=== PATIENT | female | born 1960 | race American Indian/Alaskan Native ===

== ENCOUNTER 2019-04-11 10:25 | Emergency (ER) | payer SELFPAY ==
[2019-04-11 11:07] VITALS: BP 143/81
[2019-04-11] MEDS ORDERED: TORADOL IM ONE (11:11)
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
== END 2019-04-11 12:01 | disposition home or self-care (01) ==
LOC: ED 10:25
DX: G89.29 Other chronic pain (principal); M54.30 Sciatica, unspecified side; M54.16 Radiculopathy, lumbar region
CPT/HCPCS: 96372; 99281; J1885

== ENCOUNTER 2019-04-24 11:51 | Emergency (ER) | payer SELFPAY ==
[2019-04-24 12:10] VITALS: BP 129/83
[2019-04-24] MEDS ORDERED: FLEXERIL PO ONE (13:25)
[2019-04-24] MEDS ORDERED: IBUPROFEN PO ONE (13:25)
--- NOTE | 2019-04-24 13:29 | Emergency Department Report ---
ED Back Pain/Injury HPI - General Chief Complaint: Back Pain/Injury Stated Complaint: BACK/LEG SPASMS Time Seen by Provider: 04/24/19 13:10 Source: patient Limitations: No Limitations - History of Present Illness Initial Comments: Patient is a 51-year-old female who presents to the emergency room with complaints of chronic low back pain that began 2 years ago. She states she has seen a chiropractor in the past. Patient states she just recently moved here and does not have a primary care doctor. She denies any new fall, injury, trauma. she does not report any numbness, weakness, bowel or bladder incontinence, urinary symptoms, fever. she has a past medical history of HTN, asthma. Patient was evaluated in the emergency room on 619 and given a prescription for Flexeril and ibuprofen. Patient was given a primary care doctor to follow up with and she has not. - Related Data Previous Rx's Medication Instructions Recorded Last Taken Type Cyclobenzaprine [Flexeril] 10 mg PO TID PRN #20 tablet 04/11/19 Unknown Rx Ibuprofen [Motrin 800 MG tab] 800 mg PO Q8HR PRN #15 tablet 04/11/19 Unknown Rx Allergies Allergy/AdvReac Type Severity Reaction Status Date / Time No Known Allergies Allergy Unverified 04/11/19 11:43 ED Review of Systems ROS: Stated complaint: BACK/LEG SPASMS Other details as noted in HPI Comment: All other systems reviewed and negative ED Past Medical Hx - Past Medical History Previous Medical History?: Yes Hx Hypertension: Yes Hx Asthma: Yes - Surgical History Past Surgical History?: Yes Additional Surgical History: C-Sect x 2, tonsilectomy, hysterectomy - Social History Smoking Status: Current Every Day Smoker Substance Use Type: None - Medications Home Medications: Home Medications Medication Instructions Recorded Confirmed Last Taken Type Cyclobenzaprine [Flexeril] 10 mg PO TID PRN #20 tablet 04/11/19 Unknown Rx Ibuprofen [Motrin 800 MG tab] 800 mg PO Q8HR PRN #15 tablet 04/11/19 Unknown Rx ED Physical Exam - General Limitations: No Limitations General appearance: alert, in no apparent distress - Head Head exam: Present: atraumatic, normocephalic - Eye Eye exam: Present: normal appearance, PERRL - ENT ENT exam: Present: mucous membranes moist - Neck Neck exam: Present: normal inspection, full ROM. Absent: tenderness - Respiratory Respiratory exam: Present: normal lung sounds bilaterally. Absent: respiratory distress, wheezes, rales, rhonchi, stridor, chest wall tenderness, accessory muscle use, decreased breath sounds, prolonged expiratory - Cardiovascular Cardiovascular Exam: Present: regular rate, normal rhythm, normal heart sounds. Absent: systolic murmur, diastolic murmur, rubs, gallop - Back Exam Back exam: Present: normal inspection, full ROM. Absent: paraspinal tenderness, vertebral tenderness - Neurological Exam Neurological exam: Present: alert, oriented X3, CN II-XII intact, normal gait. Absent: motor sensory deficit - Psychiatric Psychiatric exam: Present: normal affect, normal mood - Skin Skin exam: Present: warm, dry, intact ED Course Vital Signs 04/24/19 12:09 Temperature 98.2 F Pulse Rate 91 H Respiratory 16 Rate Blood Pressure 129/83 O2 Sat by Pulse 96 Oximetry ED Medical Decision Making - Medical Decision Making Patient is a 51-year-old female who presents to the emergency room with complaints of chronic low back pain that began 2 years ago. She states she has seen a chiropractor in the past. Patient states she just recently moved here and does not have a primary care doctor. She denies any new fall, injury, trauma. she does not report any numbness, weakness, bowel or bladder incontinence, urinary symptoms, fever. she has a past medical history of HTN, asthma. Patient was evaluated in the emergency room on 619 and given a prescription for Flexeril and ibuprofen. Patient was given a primary care doctor to follow up with and she has not. no spinal TTP, no paraspinal TTP, FROM of the spine, no focal neuro deficit. pt given ibuprofen and flexeril while in the ED. discussed with pt that she would need to follow up with a primary care doctor for further management of her chronic back pain and that this condition is not typically managed from an emergency room. Please follow up with a primary care doctor in the next 2-3 days. Given list of community resources. May use ice, rest, heat, epsom salt bath. Return to the emergency room for any new or worsening symptoms. - Differential Diagnosis DDD, DJD, sciatica, bulging disc Critical care attestation.: If time is entered above; I have spent that time in minutes in the direct care of this critically ill patient, excluding procedure time. ED Disposition Clinical Impression: Chronic back pain Qualifiers: Back pain location: low back pain Back pain laterality: bilateral Sciatica presence: without sciatica Qualified Code(s): M54.5 - Low back pain Disposition: TO HOME OR SELFCARE Is pt being admited?: No Does the pt Need Aspirin: No Condition: Stable Instructions: Chronic Back Pain (ED) Additional Instructions: Please follow up with a primary care doctor in the next 2-3 days. Given list of community resources. May use ice, rest, heat, epsom salt bath. Return to the emergency room for any new or worsening symptoms. Referrals: ROX BLANK MD [Primary Care Provider] - 2-3 Days [facility] [Outside] - 2-3 Days [facility] [Outside] - 2-3 Days Time of Disposition: 13:28 Print Language: CZECH
== END 2019-04-24 13:37 | disposition home or self-care (01) ==
LOC: ED 11:51
DX: G89.29 Other chronic pain (principal); M54.5 Low back pain; I10 Essential (primary) hypertension; F17.200 Nicotine dependence, unspecified, uncomplicated; J45.909 Unspecified asthma, uncomplicated; Z90.89 Acquired absence of other organs; Z90.710 Acquired absence of both cervix and uterus

== ENCOUNTER 2019-06-25 12:12 | Emergency (ER) | payer OTHER ==
--- NOTE | 2019-06-25 12:22 | Emergency Department Report ---
Chief Complaint: Recheck/Abnormal Lab/Rx Stated Complaint: HBP Time Seen by Provider: 06/25/19 12:17 - HPI History of Present Illness: 59 y o female with a PMH of HTN controlled with medication presents to ED stating that she is out of her medication x 1 week She states she is new to the area and has not found a pcp yet She denies fever,cp,sob,headache or any other symptoms She also states hx of muscle spasms of lower back and was taking flexeril. - ROS Review of Systems: As noted in HPI - Exam Physical Exam: GEN: AAO x 3, she is not in any distress CHEST:RRR , no mummurs, nontender to palpation MSE screening note: Focused history and physical exam performed. Due to findings the following was ordered: ED Medical Decision Making - Medical Decision Making 59 y o female with hx of HTN presents to Ed wanting medication refill She is in no acute or respiratory distress Vital signs stable, no distess DIscussed to follow up with her pCP ED Disposition for MSE Clinical Impression: Medication refill Disposition: - TO HOME OR SELFCARE Is pt being admited?: No Does the pt Need Aspirin: No Condition: Stable Instructions: Chronic Hypertension (ED) Prescriptions: Cyclobenzaprine [Flexeril 10 MG TAB] 10 mg PO QHS PRN #15 tablet PRN Reason: Muscle Spasm Losartan/Hydrochlorothiazide [Hyzaar 100-12.5 Tablet] 1 each PO DAILY #40 tablet [facility] - 3-5 Days [facility] [Outside] - 3-5 Days [facility] [Outside] - 3-5 Days CAROLINA LAO MD [Staff Physician] - 3-5 Days Forms: Work/School Release Form(ED) Time of Disposition: 12:28
[2019-06-25 12:26] VITALS: BP 164/96
== END 2019-06-25 12:29 | disposition home or self-care (01) ==
LOC: ED 12:12
DX: I10 Essential (primary) hypertension (principal); M62.830 Muscle spasm of back; Z76.0 Encounter for issue of repeat prescription
CPT/HCPCS: 99281